=== PATIENT | female | born 1990 | race Caucasian/White ===

== ENCOUNTER 2018-06-29 14:15 | Emergency (ER) | payer OTHER | END 2018-06-29 15:26 | disposition home or self-care (01) | LOC: FTE 14:15 | DX: R10.11 Right upper quadrant pain (principal) | CPT/HCPCS: 99282; Z7502 ==

== ENCOUNTER 2018-06-30 11:42 | Day surgery (SDC) | payer OTHER ==
[2018-06-30] MEDS: SOD CHLORIDE 0.9% 1,000 ML IV (12:52)
[2018-06-30] MEDS: CEFAZOLIN 2 GM/50 ML (PMX) 50 ML IVPB (14:20)
[2018-06-30] MEDS ORDERED: BUPIVACAINE 0.25% (MPF) 30 ML INJ (14:21)
[2018-06-30] MEDS ORDERED: KETOROLAC 30 MG INJ IV (14:30)
[2018-06-30] MEDS ORDERED: ONDANSETRON 4 MG INJ IV (14:30)
[2018-06-30] MEDS ORDERED: MEPERIDINE 25 MG INJ IV (14:30)
[2018-06-30] MEDS ORDERED: METOCLOPRAMIDE 10 MG INJ IV (14:30)
[2018-06-30] MEDS ORDERED: DIPHENHYDRAMINE 50 MG INJ IV (14:30)
[2018-06-30] MEDS ORDERED: HYDROmorphONE 1 MG/5 ML IV SYRINGE IV ×2 (14:30)
[2018-06-30] MEDS ORDERED: FENTAnyl 50 MCG/ML VIAL IV (14:30)
[2018-06-30] MEDS ORDERED: MIDAZOLAM 1 MG/ML 2 ML INJ (14:31)
[2018-06-30] MEDS ORDERED: CEFAZOLIN 1 GM INJ (14:43)
[2018-06-30] MEDS: BUPIVACAINE 0.25% (MPF) 30 ML INJ INJ (14:58)
[2018-06-30] MEDS ORDERED: PROPOFOL 20 ML (15:11)
[2018-06-30] MEDS ORDERED: LIDOCAINE 2% (SDV) 5 ML INJ (15:11)
[2018-06-30] MEDS ORDERED: ONDANSETRON 4 MG INJ (15:11)
[2018-06-30] MEDS ORDERED: NEOSTIGMINE 3 MG/3 ML SYRINGE (15:11)
[2018-06-30] MEDS ORDERED: ROCURONIUM 50 MG INJ (15:11)
[2018-06-30] MEDS ORDERED: GLYCOPYRROLATE 0.4 MG INJ (15:11)
[2018-06-30] MEDS ORDERED: KETOROLAC 30 MG INJ (15:20)
[2018-06-30] MEDS: HYDROCODONE/APAP (5/325) TAB PO (16:11)
== END 2018-06-30 17:23 | disposition home or self-care (01) ==
LOC: SDS 11:42
DX: K80.10 Calculus of gallbladder with chronic cholecystitis without obstruction (principal)
CPT/HCPCS: 47562; 84703; 88304